=== PATIENT | female | born 1960 | race Caucasian/White ===

== ENCOUNTER 2024-07-09 13:06 | Emergency (ER) | payer OTHER ==
[~2024-07-09] VITALS: Wt 86.3 kg
[2024-07-09] MEDS ORDERED: Furosemide 40 MG/4 ML VIAL IV ONE (13:15)
[2024-07-09] MEDS ORDERED: PROTONIX20 M1 PO (13:24)
[2024-07-09] MEDS ORDERED: ONDANSETRON HYDR8 MG PO (13:25)
[2024-07-09] MEDS ORDERED: CYCLOBENZAPRINE10 M1 PO (13:54)
[2024-07-09] MEDS ORDERED: ALBUTEROL IH (13:54)
[2024-07-09] MEDS ORDERED: PREGABALIN150 MG PO (13:55)
[2024-07-09] MEDS ORDERED: OZEMPIC1 MG/0.71 SQ (13:55)
[2024-07-09] MEDS ORDERED: AMLODIPINE BESYL5 MG PO (13:55)
[2024-07-09] MEDS ORDERED: ESCITALOPRAM20 MG PO (13:56)
[2024-07-09] MEDS ORDERED: ATORVASTATIN CA40 MG PO (13:56)
[2024-07-09] MEDS ORDERED: TRESIBA FL200 UNIT/1 IN (13:57)
[2024-07-09] MEDS ORDERED: TRELEGY ELLIPT1 EACH IH (13:57)
[2024-07-09] MEDS ORDERED: PHARMASSURE V500 MCG PO (13:58)
[2024-07-09] MEDS ORDERED: BUSPIRONE HCL7.5 MG PO (13:58)
[2024-07-09] MEDS ORDERED: CLOPIDOGREL75 M2 PO (13:59)
[2024-07-09] MEDS ORDERED: LEVOCETIRIZINE D5 MG PO (13:59)
[2024-07-09] MEDS ORDERED: SINGULAIR 110 MG/TAB PO (13:59)
[2024-07-09] MEDS ORDERED: CARVEDILOL3.125 MG PO (13:59)
[2024-07-09 14:06] LABS: EOS # 0.34 K/mm3 (0.04-0.40); EOS % 2.3 % (1.0-5.0); HEMATOCRIT 33.8 % (37.0-47.0); HEMOGLOBIN 11.3 g/dL (12.5-16.0); LYMPH# 2.19 K/mm3 (1.50-4.00); MEAN CELL VOLUME 87 fl (78-100); MEAN CORPUSCULAR HEMOGLOBIN 29 pg (27-31); MEAN CORPUSCULAR HGB CONC 33 g/dL (33-37); MEAN PLATELET VOLUME 10.5 fl (7.4-10.4); MONO # 0.56 K/mm3 (0.20-0.80); NEU # 11.43 K/mm3 (1.40-6.50); PLATELET COUNT 293 K/mm3 (130-400); RED CELL DISTRIBUTION WIDTH 13.2 % (11.5-14.5); WHITE BLOOD COUNT 14.7 K/mm3 (4.8-10.8)
[2024-07-09 14:10] LABS: ALBUMIN 3.5 g/dL (3.4-4.8)
[2024-07-09 14:11] LABS: CALCIUM 9.1 mg/dL (8.3-10.5)
[2024-07-09 14:13] LABS: TOTAL PROTEIN 6.9 g/dL (6.2-8.1)
[2024-07-09 14:14] LABS: TOTAL BILIRUBIN 0.4 mg/dL (0.2-1.2)
[2024-07-09 14:27] LABS: TROPONIN-I 0.141 ng/mL (0.00-0.033)
[2024-07-09 14:35] LABS: D-DIMER 1.24 mg/L FEU (0.15-0.50)
[2024-07-09 16:02] LABS: PH-URINE 8.5 (5.0 - 8.0); URINE APPEARANCE CLEAR (CLEAR); URINE BILIRUBIN NEGATIVE (NEGATIVE); URINE BLOOD NEGATIVE (NEGATIVE); URINE COLOR YELLOW (YELLOW); URINE GLUCOSE 2+ (NEGATIVE); URINE KETONE NEGATIVE (NEGATIVE); URINE LEUKOCYTE ESTERASE NEGATIVE (NEGATIVE); URINE NITRATE NEGATIVE (NEGATIVE); URINE PROTEIN(semi-quant) 3+ (NEGATIVE)
[2024-07-09 16:05] VITALS: BP 163/94
== END 2024-07-09 16:22 | disposition short-term general hospital (02) ==
LOC: ED 13:06
PROVIDERS: Physician Assistant
DX: J96.00 Acute respiratory failure, unspecified whether with hypoxia or hypercapnia (principal); E87.5 Hyperkalemia; D72.829 Elevated white blood cell count, unspecified; J81.1 Chronic pulmonary edema; E11.22 Type 2 diabetes mellitus with diabetic chronic kidney disease; E11.65 Type 2 diabetes mellitus with hyperglycemia; I13.0 Hypertensive heart and chronic kidney disease with heart failure and stage 1 through stage 4 chronic kidney disease, or unspecified chronic kidney disease; N18.9 Chronic kidney disease, unspecified; I50.9 Heart failure, unspecified; R79.89 Other specified abnormal findings of blood chemistry
CPT/HCPCS: J1940